=== PATIENT | male | born 1965 | race African-American/Black ===

== ENCOUNTER 2020-02-01 21:44 | Emergency (ER) | payer SELFPAY ==
[~2020-02-01] VITALS: Ht 190.5 cm; Wt 87.2 kg
[2020-02-01 21:47] VITALS: BP 163/92
[2020-02-01] MEDS ORDERED: NEOSPORIN OINT. PKT 1 PACKET ONE (22:24)
== END 2020-02-01 22:37 | disposition home or self-care (01) ==
LOC: ED 21:50
DX: S90.511A Abrasion, right ankle, initial encounter (principal); T78.49XA Other allergy, initial encounter; R21 Rash and other nonspecific skin eruption; X58.XXXA Exposure to other specified factors, initial encounter; Y93.89 Activity, other specified; Y92.009 Unspecified place in unspecified non-institutional (private) residence as the place of occurrence of the external cause; Y99.8 Other external cause status
CPT/HCPCS: 99282